=== PATIENT | male | born 1940 | race Caucasian/White ===

== ENCOUNTER → 2020-11-27 15:10 | Outpatient (BNVA) | payer OTHER, SELFPAY | PROVIDERS: Family Provider Family Medicine; PCP Family Medicine; Visit Provider Family Medicine | DX: E78.5 Hyperlipidemia, unspecified (principal); I25.10 Atherosclerotic heart disease of native coronary artery without angina pectoris; I10 Essential (primary) hypertension; E78.2 Mixed hyperlipidemia; I25.118 Atherosclerotic heart disease of native coronary artery with other forms of angina pectoris; I25.5 Ischemic cardiomyopathy; I50.32 Chronic diastolic (congestive) heart failure; R00.2 Palpitations | CPT/HCPCS: 80053; 80061 ==

== ENCOUNTER → 2022-01-01 14:34 | Outpatient (BNVA) | payer OTHER, SELFPAY | PROVIDERS: Family Provider Family Medicine; PCP Family Medicine; Visit Provider Family Medicine | DX: I10 Essential (primary) hypertension (principal); E78.2 Mixed hyperlipidemia; E78.5 Hyperlipidemia, unspecified; I25.10 Atherosclerotic heart disease of native coronary artery without angina pectoris; J30.9 Allergic rhinitis, unspecified; I25.118 Atherosclerotic heart disease of native coronary artery with other forms of angina pectoris; I25.5 Ischemic cardiomyopathy; I50.32 Chronic diastolic (congestive) heart failure; J30.1 Allergic rhinitis due to pollen | CPT/HCPCS: 80053; 80061 ==

== ENCOUNTER → 2022-07-10 10:55 | Outpatient (BNVA) | payer OTHER, SELFPAY | PROVIDERS: Family Provider Family Medicine; PCP Family Medicine; Visit Provider Family Medicine | DX: I10 Essential (primary) hypertension (principal); J30.9 Allergic rhinitis, unspecified; E78.5 Hyperlipidemia, unspecified; I25.118 Atherosclerotic heart disease of native coronary artery with other forms of angina pectoris; I25.10 Atherosclerotic heart disease of native coronary artery without angina pectoris; R53.83 Other fatigue; I50.32 Chronic diastolic (congestive) heart failure; R53.82 Chronic fatigue, unspecified; M54.2 Cervicalgia; I25.5 Ischemic cardiomyopathy; E78.2 Mixed hyperlipidemia | CPT/HCPCS: 72040; 80053; 83880; 84443; 85025 ==

== ENCOUNTER → 2023-01-07 08:43 | Outpatient (BNVA) | payer OTHER, SELFPAY | PROVIDERS: Family Provider Family Medicine; PCP Family Medicine; Visit Provider Family Medicine | DX: I50.32 Chronic diastolic (congestive) heart failure (principal); E78.2 Mixed hyperlipidemia; I10 Essential (primary) hypertension | CPT/HCPCS: 80053; 80061; 83880 ==

== ENCOUNTER 2023-05-29 13:15 | Emergency (ER) | payer MEDICARE, SELFPAY ==
[2023-05-29 14:12] VITALS: BMI 34.7
[2023-05-29 14:16] VITALS: BP 131/80; PULSE 74; RESP 18; TEMP 36.8; O2SAT 94
--- NOTE | 2023-05-29 15:32 | XRR_ITS ---
PROCEDURE INFORMATION: Exam: XR Chest Exam date and time: 05/29/2023 4:13 PM Age: 83 years old Clinical indication: Fever; Additional info: Fever chills cough TECHNIQUE: Imaging protocol: Radiologic exam of the chest. Views: 1 view. COMPARISON: CR XR cervical spine 3V* [id number] 07/10/2022 11:03 AM FINDINGS: Lungs: Unremarkable. No consolidation. Pleural spaces: Unremarkable. No pleural effusion. No pneumothorax. Heart/Mediastinum: Unremarkable. No cardiomegaly. Bones/joints: Unremarkable. XR/XR chest 1V portable [id number] IMPRESSION: No acute findings.
[2023-05-29 16:09] LABS: Basophils % 0.2 %; Eosinophils # 0.3 10^3/uL (0.0-0.8); Eosinophils % 5.2 %; Hematocrit 44.5 % (37-53); Lymphocytes % 16.4 %; Mean Corpuscular HGB Conc 33.9 g/dL (30-55); Mean Corpuscular Hemoglobin 32.8 pg (27-33); Mean Corpuscular Volume 96.5 fl (82-101); Monocytes # 0.8 10^3/uL (0.2-0.9); Monocytes % 13.9 %; Neutrophils # 3.79 10^3/uL (1.8-7.7); Neutrophils % 63.3 %; Nucleated Red Blood Cells % 0 %; Platelet Count 197 10^3/cmm (157-399); Red Blood Count 4.61 10^6/uL (3.85-5.65); Red Cell Distribution Width 12.5 % (12.1-15.1); White Blood Count 5.98 10^3/uL (3.29-11.43)
[2023-05-29 16:30] LABS: Alanine Aminotransferase 39 U/L (0-41); Albumin Level 3.5 g/dL (3.5-5.2); Alkaline Phosphatase 78 U/L (40-130); Anion Gap 8.8 (5-19); Aspartate Amino Transferase 31 U/L (0-40); Blood Urea Nitrogen 11 mg/dL (8-23); Calcium 8.7 mg/dL (8.5-10.5); Carbon Dioxide 29 mmol/L (22-29); Chloride 104 mmol/L (98-107); Globulin 3.4 g/dL (1.3-4.6); Glucose 105 mg/dL (65-115); Osmolality Calculated 286 mOsm/kg (285-295); Potassium 3.8 mmol/L (3.5-5.1); Sodium 138 mmol/L (136-145); Total Bilirubin 0.9 mg/dL (0.15-1.2); Total Protein 6.9 g/dL (6.6-8.7)
[2023-05-29 17:11] LABS: Add Urine Microscopic? NO; Charge for UA Resulting for Rev
[2023-05-29 17:13] LABS: Bilirubin Urine Neg (Negative); Blood Urine Neg (Negative); Glucose Urine UA Norm (Normal); Ketones Urine Negative (Negative); Leukocyte Esterase Urine Negative (Negative); Nitrate Urine Negative (Negative); Protein Urine Neg (Negative); Specific Gravity, Urine 1.005 (1.005-1.030); Urine Appearance Clear (CLEAR); Urine Color Yellow (Yellow); Urobilinogen Urine 4 mg/dL (Negative); pH Urine 6 (5-7)
[2023-05-29 17:27] LABS: SARS Covid-2 Antigen negative (Negative)
[2023-05-29 18:12] VITALS: BP 159/82; PULSE 76; RESP 16; O2SAT 96
--- NOTE | 2023-05-29 18:13 | ED_ITS ---
HPI - COVID General: Chief Complaint: COVID symptoms Stated Complaint: gen medical Time Seen by Provider: 05/29/23 17:50 History of Present Illness: Presents with cough fever chills congestion. Patient said this been going on for about 6 days. Patient's been on a Z-Michael for 3 days. Patient says his cough is getting worse and he is concerned for pneumonia.. Patient denies any fever or chills. Patient just got back from [place] where he is visiting family members. Patient's daughter and granddaughter was sick with the same similar symptoms but now they are better and he has not. COVID Results: SARS-CoV-2 Antigen (Rapid) negative (Negative) 05/29/23 16:55 Review of Systems General: Reports: 10 or more systems reviewed and unremarkable except in HPI and below PFSH ED PFSH: Medical History CAD (coronary artery disease) Diastolic CHF, chronic Hyperlipemia Hypertension Ischemic cardiomyopathy Surgical History H/O heart artery stent Social History Smoking and tobacco status: never smoked Physical Exam Const: COMMON NORMALS: no acute distress, average body habitus, patient oriented x3, no limitations, healthy appearing, alert and well nourished HENMT: COMMON NORMALS: normocephalic, atraumatic, hearing grossly normal bilaterally, external ears normal, Normal external nose present and moist oral mucous membranes HEAD & SCALP: normocephalic and atraumatic NOSE: Normal external nose present EXTERNAL EAR: Yes external ears normal Eye: COMMON NORMALS: Equal, round and reactive pupils present, EOMs intact bilaterally, conjunctivae normal and no scleral icterus CONJUNCTIVA: Yes conjunctivae normal PUPIL: Yes Equal, round and reactive pupils present Neck/C-Spine: COMMON NORMALS: full ROM, no lymphadenopathy, supple, no meningeal signs, no JVD and Thyroid normal THYROID: Thyroid normal Lymph: LYMPHATIC: no lymphadenopathy noted Chest: COMMONS NORMALS: normal inspection of the chest and normal palpation of entire chest wall Resp: COMMON NORMALS: normal respiratory effort, No retractions and No use of accessory muscles; negative for clear to auscultation bilaterally (Mild expiratory wheeze on end expiration) AUSCULTATION: not clear to auscultation bilaterally (Mild expiratory wheeze on end expiration) Cardio: COMMON NORMALS: no JVD, regular rate, regular rhythm, S1 normal heart sound present, S2 normal heart sound present, No gallops present (Cardio), No clicks present (Cardio), No murmurs present (Cardio) and No rub (Cardio) RATE: regular rate RHYTHM: regular rhythm HEART SOUNDS: S1 normal heart sound present and S2 normal heart sound present GI: COMMON NORMALS: Normal to inspection, nondistended, normoactive bowel sounds present, Soft to palpation, non-tender, No hepatosplenomegaly present and no masses PALPATION: Yes Soft to palpation and Yes No hepatosplenomegaly present : COMMON NORMALS: Yes no CVA tenderness BLADDER/KIDNEY EXAM: Yes no CVA tenderness Back/Pelvis: COMMON NORMALS: no CVA tenderness Neuro: COMMON NORMALS: patient oriented x3 SENSORIUM/ORIENTATION: Yes alert MENINGEAL SIGNS: Yes no meningeal signs Course Vital Signs: Vital signs: Vital Signs Temperature 98.2 F 05/29/23 14:16 Pulse Rate 76 05/29/23 18:12 Respiratory Rate 16 05/29/23 18:12 Blood Pressure 159/82 05/29/23 18:12 Pulse Oximetry 95 05/29/23 18:14 Oxygen Delivery Me thod Room Air 05/29/23 18:14 MDM - COVID Medical Decision Making Zentz to the ER with complains of cough fever chills congestion. Patient's been on a Z-Michael for 3 days. Patient's family members have already gotten better who has had the same similar symptoms. Patient's x-ray was negative. Patient's lab work was negative. EKG negative it is thought this probably an upper respiratory virus or some bronchitis. Patient's wheezing improved with a breathing treatment. Patient will be discharged home on prednisone and albuterol inhaler. Patient should follow-up with his PCP in approximately 7 days or sooner as needed. Differential Diagnosis Likely COVID 19 and pneumonia; Unlikely influenza, other viral infection, bacterial infection, copd exacerbation, pulmonary embolism, NSTEMI/STEMI, CHF exacerbation, stroke or overdose/intoxication Medical Records I reviewed the patient's medical records. Lab Data I reviewed the patient's lab results. 05/29/23 15:58 05/29/23 15:58 Radiology Impressions Chest X-Ray 05/29/23 15:32 IMPRESSION: No acute findings. Laboratory Results WBC 5.98 10^3/uL (3.29-11.43) 05/29/23 15:58 RBC 4.61 10^6/uL (3.85-5.65) 05/29/23 15:58 Hgb 15.10 g/dL (11.27-16.99) 05/29/23 15:58 Hct 44.5 % (37-53) 05/29/23 15:58 MCV 96.5 fl (82-101) 05/29/23 15:58 MCH 32.8 pg (27-33) 05/29/23 15:58 MCHC 33.9 g/dL (30-55) 05/29/23 15:58 RDW 12.5 % (12.1-15.1) 05/29/23 15:58 Plt Count 197 10^3/cmm (157-399) 05/29/23 15:58 MPV 10.0 fL (7.4-10.4) 05/29/23 15:58 Neut % (Auto) 63.3 % 05/29/23 15:58 Lymph % (Auto) 16.4 % 05/29/23 15:58 [place] % (Auto) 13.9 % 05/29/23 15:58 Eos % (Auto) 5.2 % 05/29/23 15:58 Baso % (Auto) 0.2 % 05/29/23 15:58 Neut # (Auto) 3.79 10^3/uL (1.8-7.7) 05/29/23 15:58 Lymph # (Auto) 1.0 10^3/uL (0.8-4.8) 05/29/23 15:58 [place] # (Auto) 0.8 10^3/uL (0.2-0.9) 05/29/23 15:58 Eos # (Auto) 0.3 10^3/uL (0.0-0.8) 05/29/23 15:58 Baso # (Auto) 0.0 10^3/uL (0.0-0.1) 05/29/23 15:58 Nucleated RBC % (auto) 0 % 05/29/23 15:58 Nucleated RBCs # 0.0 /100WBC 05/29/23 15:58 Sodium 138 mmol/L (136-145) 05/29/23 15:58 Potassium 3.8 mmol/L (3.5-5.1) 05/29/23 15:58 Chloride 104 mmol/L (98-107) 05/29/23 15:58 Carbon Dioxide 29 mmol/L (22-29) 05/29/23 15:58 Anion Gap 8.8 (5-19) 05/29/23 15:58 BUN 11 mg/dL (8-23) 05/29/23 15:58 Creatinine 0.8 mg/dL (0.7-1.2) 05/29/23 15:58 GFR Calculation Not Reportable 05/29/23 15:58 Glucose 105 mg/dL (65-115) 05/29/23 15:58 Calculated Osmolality 286 mOsm/kg (285-295) 05/29/23 15:58 Calcium 8.7 mg/dL (8.5-10.5) 05/29/23 15:58 Total Bilirubin 0.9 mg/dL (0.15-1.2) 05/29/23 15:58 AST 31 U/L (0-40) 05/29/23 15:58 ALT 39 U/L (0-41) 05/29/23 15:58 Alkaline Phosphatase 78 U/L (40-130) 05/29/23 15:58 Total Protein 6.9 g/dL (6.6-8.7) 05/29/23 15:58 Albumin 3.5 g/dL (3.5-5.2) 05/29/23 15:58 Globulin 3.4 g/dL (1.3-4.6) 05/29/23 15:58 Urine Color Yellow (Yellow) 05/29/23 16:55 Urine Appearance Clear (CLEAR) 05/29/23 16:55 Urine pH 6 (5-7) 05/29/23 16:55 Ur Specific Mccoll 1.005 (1.005-1.030) 05/29/23 16:55 Urine Protein Neg (Negative) 05/29/23 16:55 Urine Glucose (UA) Norm (Normal) 05/29/23 16:55 Urine Ketones Negative (Negative) 05/29/23 16:55 Urine Blood Neg (Negative) 05/29/23 16:55 Urine Nitrate Negative (Negative) 05/29/23 16:55 Urine Bilirubin Neg (Negative) 05/29/23 16:55 Urine Urobilinogen 4 mg/dL (Negative) H 05/29/23 16:55 Ur Leukocyte Esterase Negative (Negative) 05/29/23 16:55 SARS-CoV-2 Ag (Rapid) negative (Negative) 05/29/23 16:55 SARS-CoV-2 Antigen (Rapid) negative (Negative) 05/29/23 16:55 EKG Data EKG 1: I personally reviewed and interpreted this EKG as follows: EKG interpretation date: 05/29/23 EKG interpretation time: 18:22 Prior EKG tracings: not available for review Interpretation: EKG shows ventricular rate 73 bpm, IL interval 186, QRS duration 104, QTc 419, sinus rhythm, no ST-T wave changes Discharge Plan Discharge Patient Disposition: Home Clinical Impression: Bronchitis, Expiratory wheezing Condition: Stable Prescriptions: New prednisone 50 mg tablet 50 mg PO DAILY 5 Days Qty: 5 0RF albuterol sulfate [ProAir HFA] 90 mcg/actuation HFA aerosol inhaler 2 inh inhalation Q6H PRN (Reason: shortness of breath or wheezing) Qty: 8.5 0RF No Action furosemide [Lasix] 20 mg tablet 20 mg PO QAM PRN (Reason: leg swelling) Qty: 90 0RF Rx Instructions: as directed by aspirin [Adult Low Dose Aspirin] 81 mg tablet,delayed release (DR/EC) 81 mg PO DAILY metoprolol succinate 25 mg tablet extended release 24 hr 25 mg PO DAILY 90 Days Qty: 90 1RF loratadine 10 mg tablet 10 mg PO DAILY 90 Days Qty: 90 1RF lisinopril 30 mg tablet 30 mg PO DAILY 90 Days Qty: 90 1RF atorvastatin 40 mg tablet 40 mg PO DAILY 90 Days Qty: 90 3RF azithromycin 250 mg tablet See Rx Instructions PO .COMPLEX Qty: 6 0RF Rx Instructions: For 250 mg dose pack: take 500 mg today (day 1), then 250 mg for 4 days (days 2-5) PO fluticasone propionate 50 mcg/actuation spray,suspension 1 spray intranasal DAILY Qty: 15.8 1RF Rx Instructions: administer into each nostril Discharge Orders: Discharge ED (Routine); Ordered 05/29/23 Ordered By: Sukhjinder Castañeda Referrals: Cezar Serrato DO [Family Provider] - 1 week Ibeth Keenan MD [Primary Care Provider] - 1 week Patient Instructions: Acute Bronchitis (ED), Wheezing (ED) Activity Restrictions/Additional Instructions: Please finish your Z-Michael. Please take all your medicine including your steroids and inhaler As directed. Please follow-up with your family practice doctor in the next 7 days or sooner as needed. For further evaluation and treatment. Coding Level of Care Code ED Infection Control Nurse for Rena Cornell
[2023-05-29 18:14] VITALS: O2SAT 95
--- NOTE | 2023-05-29 18:22 | ECG_ITS ---
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 Measurements Intervals [place] Rate: 73 P: 58 WV: 186 QRS: 24 QRSD: 104 T: 40 QT: 392 QTc: 435 Interpretive Statements SINUS RHYTHM No previous ECG available for comparison Electronically Signed On 05-29-2023 20:30:11 CDT by Cristina Waterman M.D. [email or web address]
[2023-05-29 19:07] VITALS: BP 141/76; PULSE 72; O2SAT 95
[2023-05-29 19:18] VITALS: BP 165/78; PULSE 73; O2SAT 94
== END 2023-05-29 19:20 | disposition home or self-care (01) ==
PROVIDERS: Emergency Provider Emergency Medicine; Family Provider Family Medicine; PCP Family Medicine
DX: J40 Bronchitis, not specified as acute or chronic (principal); Z79.82 Long term (current) use of aspirin; Z20.822 Contact with and (suspected) exposure to COVID-19; I25.10 Atherosclerotic heart disease of native coronary artery without angina pectoris; I11.0 Hypertensive heart disease with heart failure; I50.32 Chronic diastolic (congestive) heart failure; E78.5 Hyperlipidemia, unspecified
CPT/HCPCS: 36415; 71045; 80053; 81003; 85025; 87426; 93005; 99285

== ENCOUNTER → 2023-06-02 08:33 | Outpatient (BNVA) | payer MEDICARE, SELFPAY | PROVIDERS: Family Provider Family Medicine; PCP Family Medicine; Visit Provider Family Medicine | DX: M17.11 Unilateral primary osteoarthritis, right knee; M25.551 Pain in right hip; M25.552 Pain in left hip | CPT/HCPCS: 73523; 73562 ==

== ENCOUNTER → 2023-08-03 14:44 | Outpatient (BNVA) | payer MEDICARE, SELFPAY | PROVIDERS: Family Provider Family Medicine; PCP Family Medicine; Referring Provider Family Medicine; Visit Provider Internal Medicine | DX: R07.9 Chest pain, unspecified (principal); I11.0 Hypertensive heart disease with heart failure; I50.32 Chronic diastolic (congestive) heart failure; E78.2 Mixed hyperlipidemia; I25.5 Ischemic cardiomyopathy; I25.118 Atherosclerotic heart disease of native coronary artery with other forms of angina pectoris | CPT/HCPCS: 93005; 99204 ==

== ENCOUNTER 2023-09-09 11:48 | Outpatient (CLI) | payer MEDICARE, SELFPAY ==
--- NOTE | 2023-09-09 12:15 | USCV_ITS ---
Micah Wu Age: 83 Gender: M : 1940 Exam Date: 09/09/2023 11:57 Ordering Phys: Roberto Marquez M.D ([email or web address]) Technologist: CELESTE Exam Location: [facility] [place] Indication: PRIOR HISTORY OF CARDIAC STENTS. BP: 120 / 80 HR: 72 Rhythm: Sinus Technical Quality: Adequate MEASUREMENTS (Male / Female) Normal Values 2D ECHO LV Diastolic Diameter PLAX 4.5 cm 4.2 - 5.9 / 3.9 - 5.3 cm LV Systolic Diameter PLAX 3.7 cm LV Chamber Size 3.7 cm IVS Diastolic Thickness 1.4 cm 0.6 - 1.0 / 0.6 - 0.9 cm IVS Systolic Thickness 1.6 cm LVPW Diastolic Thickness 1.4 cm 0.6 - 1.0 / 0.6 - 0.9 cm LVPW Systolic Thickness 1.9 cm RV Chamber Size 2.9 cm LVOT Diameter 2.0 cm LV Ejection Fraction 2D Teich 39.3 % LV Ejection Fraction MOD 2C 59.8 % LV Ejection Fraction 2C AL 59.7 % LA Diameter 4.4 cm LA Width 2.8 cm LA Height 3.6 cm RA Width 4.0 cm RA Height 3.8 cm Aorta at Sinotubular Diameter 3.8 cm IVC Diameter 1.3 cm M-MODE Aortic Annulus Diameter 3.8 cm LA Ao Ratio MM 1.4 MV E Point Septal Separation 1.5 cm DOPPLER AV Peak Velocity 111.0 cm/s LVOT Peak Velocity 92.0 cm/s AV Area Cont Eq vti 2.5 cm squared AV Area Cont Eq pk 2.7 cm squared MV Area PHT 2.6 cm squared Mitral E to A Ratio 0.7 MV E' Velocity 31.0 cm/s Mitral E to MV E' Ratio 8.2 Mitral E to LV E' Lateral Ratio 8.2 Mitral E to LV E' Septal Ratio 8.3 TR Peak Velocity 193.8 cm/s TR Peak Gradient 15.0 mmHg TR Mean Velocity 139.5 cm/s TR Mean Gradient 8.8 mmHg TR Velocity Time Integral 46.7 cm TV Peak E Velocity 64.0 cm/s Right Atrial Pressure 3.0 mmHg Pulmonary Artery Systolic Pressu 18.0 mmHg RV Acceleration Time 0.1 s RV Ejection Time 0.3 s RV AcT/ET 0.3 FINDINGS Left Ventricle Left ventricle is normal in size. LV systolic function is normal with EF of 55 to 60%. No regional wall motion abnormalities are seen. Grade 1 diastolic dysfunction. Right Ventricle Normal in size and function Right Atrium Normal in size Left Atrium Normal in size Mitral Valve Structurally normal mitral valve. Aortic Valve Structurally normal aortic valve. No significant stenosis or regurgitation. Tricuspid Valve Mild tricuspid regurgitation. Pulmonary artery systolic pressure is normal. Pulmonic Valve Not well-visualized Pericardium Normal Aorta Ascending aorta is mildly dilated with diameter of 3.77 cm. IVC Appears to be normal CONCLUSIONS LV systolic function is normal with EF 55 to 60%. Grade 1 diastolic dysfunction. 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
== END 2023-09-09 11:49 | disposition home or self-care (01) ==
LOC: RAD 11:49
PROVIDERS: Family Provider Family Medicine; PCP Family Medicine; Visit Provider Internal Medicine
DX: R07.9 Chest pain, unspecified (principal); R06.02 Shortness of breath; Z95.5 Presence of coronary angioplasty implant and graft; I07.1 Rheumatic tricuspid insufficiency; I77.810 Thoracic aortic ectasia
CPT/HCPCS: 93306

== ENCOUNTER 2023-09-29 14:40 | Emergency (ER) | payer MEDICARE, SELFPAY ==
[2023-09-29 15:11] VITALS: BP 160/83; PULSE 81; RESP 18; TEMP 36.6; O2SAT 94; BMI 34.8
--- NOTE | 2023-09-29 16:19 | XRR_ITS ---
PROCEDURE INFORMATION: Exam: XR Chest Exam date and time: 09/29/2023 4:35 PM Age: 83 years old Clinical indication: Cough TECHNIQUE: Imaging protocol: Radiologic exam of the chest. Views: 1 view. COMPARISON: CR XR chest 1V portable [id number] 05/29/2023 4:13 PM FINDINGS: Lungs: Unremarkable. No consolidation. Pleural spaces: Unremarkable. No pleural effusion. No pneumothorax. Heart/Mediastinum: Unremarkable. No cardiomegaly. Diaphragm: There is elevation of the right hemidiaphragm. Bones/joints: Unremarkable. XR/XR chest 1V portable [id number] IMPRESSION: No acute findings.
[2023-09-29 16:42] VITALS: BP 137/83; PULSE 82; RESP 18; O2SAT 92
[2023-09-29 17:19] LABS: Basophils % 0.4 %; Eosinophils # 0.1 10^3/uL (0.0-0.8); Eosinophils % 1.9 %; Hematocrit 47.9 % (37-53); Lymphocytes # 0.9 10^3/uL (0.8-4.8); Lymphocytes % 12.6 %; Mean Corpuscular HGB Conc 33.2 g/dL (30-55); Mean Corpuscular Volume 96.4 fl (82-101); Mean Platelet Volume 10.6 fL (7.4-10.4); Monocytes # 0.7 10^3/uL (0.2-0.9); Monocytes % 9.6 %; Neutrophils # 5.44 10^3/uL (1.8-7.7); Neutrophils % 74.7 %; Nucleated Red Blood Cells % 0 %; Platelet Count 191 10^3/cmm (157-399); Red Blood Count 4.97 10^6/uL (3.85-5.65); Red Cell Distribution Width 12.3 % (12.1-15.1); White Blood Count 7.29 10^3/uL (3.29-11.43)
[2023-09-29 17:37] LABS: Alanine Aminotransferase 24 U/L (0-41); Albumin Level 3.7 g/dL (3.5-5.2); Alkaline Phosphatase 99 U/L (40-130); Anion Gap 14.3 (5-19); Aspartate Amino Transferase 25 U/L (0-40); Blood Urea Nitrogen 12 mg/dL (8-23); Calcium 9.3 mg/dL (8.5-10.5); Carbon Dioxide 27 mmol/L (22-29); Chloride 102 mmol/L (98-107); Globulin 3.7 g/dL (1.3-4.6); Glucose 151 mg/dL (65-115); Lipase 14 U/L (13-60); Osmolality Calculated 291 mOsm/kg (285-295); Potassium 4.3 mmol/L (3.5-5.1); Sodium 139 mmol/L (136-145); Total Bilirubin 0.9 mg/dL (0.15-1.2); Total Protein 7.4 g/dL (6.6-8.7)
[2023-09-29 19:15] VITALS: PULSE 85; O2SAT 93
[2023-09-29] MEDS: HYDROcodone-acetaminophen 5-325 mg Tablet 1 TAB PO (19:21)
--- NOTE | 2023-09-29 19:35 | ED_ITS ---
HPI - Abdominal Pain 2 General: Chief Complaint: Abdominal Pain Stated Complaint: cough,left side abd pain Time Seen by Provider: 09/29/23 18:49 Source: patient Mode of arrival: ambulatory Limitations: no limitations History of Present Illness: 83-year-old male states he had a chronic cough for the last 2 weeks. Denies any fever denies any shortness of breath his cough has been nonproductive states he has been coughing so hard he started having some left side pain. States much worse with touch and when he coughs. Denies any dysuria denies any vomiting or diarrhea. Associated Symptoms: Denies chills, diarrhea, dysuria, fever(s), nausea and vomiting Review of Systems 2 Const: Denies: fever(s), chills, body aches or change in appetite ENMT: Denies: throat pain or dental pain Card: Denies: chest pain Resp: Reports: non-productive cough; Denies: dyspnea GI: Reports: abdominal pain; Denies: nausea, vomiting or diarrhea : Denies: dysuria Musc: Denies: neck pain or back pain Skin/Breast: Denies: rash Neuro: Denies: headache(s) PFSH ED 2 PFSH: Medical History Diastolic CHF, chronic Hyperlipemia Hypertension Ischemic cardiomyopathy CAD (coronary artery disease) Surgical History H/O heart artery stent Social History Smoking and tobacco/nicotine status: never used tobacco/nicotine Physical Exam 2 Const: COMMON NORMALS: no acute distress, patient oriented x3 and healthy appearing HENMT: COMMON NORMALS: normocephalic and atraumatic HEAD & SCALP: n ormocephalic and atraumatic Neck/C-Spine: COMMON NORMALS: full ROM and supple Chest: COMMONS NORMALS: normal inspection of the chest and normal palpation of entire chest wall Resp: COMMON NORMALS: normal respiratory effort, No retractions, No use of accessory muscles and clear to auscultation bilaterally AUSCULTATION: clear to auscultation bilaterally Cardio: COMMON NORMALS: regular rate, regular rhythm and No murmurs present (Cardio) RATE: regular rate RHYTHM: regular rhythm GI: COMMON NORMALS: Normal to inspection, nondistended, normoactive bowel sounds present, Soft to palpation and no masses PALPATION: Yes Soft to palpation OTHER: Tenderness over left lateral abdomen side Extremity: COMMON NORMALS: normal to inspection and full ROM Neuro: COMMON NORMALS: patient oriented x3, moves all extremities and no focal motor deficits Psych: COMMON NORMALS: mental status grossly normal, Normal thought process present and cooperative THOUGHT PROCESS: Normal thought process present Skin: COMMON NORMALS: no rashes or lesions noted and no wounds GENERAL SKIN EXAM: no rashes or lesions noted Course 2 Vital Signs: Vital signs: Vital Signs Temperature 98 F 09/29/23 15:11 Pulse Rate 82 09/29/23 16:42 Respiratory Rate 18 09/29/23 16:42 Blood Pressure 137/83 09/29/23 16:42 Pulse Oximetry 92 09/29/23 16:42 Oxygen Delivery Me thod Room Air 09/29/23 15:11 MDM - Abdominal Pain Medical Decision Making Patient presents here with left side pain I believe is likely a muscle strain from him coughing. He has no signs of acute abdomen blood work here is normal x-ray shows no pneumonia has had a cough for 2 weeks I did inform him he needs to follow-up with his PCP in 1 week he is on lisinopril informing lisinopril can cause a cough and his cough continues inform he needs to talk to his PCP about possibly taking him off the lisinopril we will prescribe pain meds for his side pain return if worsening. Lab Data 09/29/23 17:02 09/29/23 17:02 Labs/Radiology: Radiology Impressions Chest X-Ray 09/29/23 16:19 IMPRESSION: No acute findings. Laboratory Results WBC 7.29 10^3/uL (3.29-11.43) 09/29/23 17:02 RBC 4.97 10^6/uL (3.85-5.65) 09/29/23 17:02 Hgb 15.90 g/dL (11.27-16.99) 09/29/23 17:02 Hct 47.9 % (37-53) 09/29/23 17:02 MCV 96.4 fl (82-101) 09/29/23 17:02 MCH 32.0 pg (27-33) 09/29/23 17:02 MCHC 33.2 g/dL (30-55) 09/29/23 17:02 RDW 12.3 % (12.1-15.1) 09/29/23 17:02 Plt Count 191 10^3/cmm (157-399) 09/29/23 17:02 MPV 10.6 fL (7.4-10.4) H 09/29/23 17:02 Neut % (Auto) 74.7 % 09/29/23 17:02 Lymph % (Auto) 12.6 % 09/29/23 17:02 [place] % (Auto) 9.6 % 09/29/23 17:02 Eos % (Auto) 1.9 % 09/29/23 17:02 Baso % (Auto) 0.4 % 09/29/23 17:02 Neut # (Auto) 5.44 10^3/uL (1.8-7.7) 09/29/23 17:02 Lymph # (Auto) 0.9 10^3/uL (0.8-4.8) 09/29/23 17:02 [place] # (Auto) 0.7 10^3/uL (0.2-0.9) 09/29/23 17:02 Eos # (Auto) 0.1 10^3/uL (0.0-0.8) 09/29/23 17:02 Baso # (Auto) 0.0 10^3/uL (0.0-0.1) 09/29/23 17:02 Nucleated RBC % (auto) 0 % 09/29/23 17:02 Nucleated RBCs # 0.0 /100WBC 09/29/23 17:02 Sodium 139 mmol/L (136-145) 09/29/23 17:02 Potassium 4.3 mmol/L (3.5-5.1) 09/29/23 17:02 Chloride 102 mmol/L (98-107) 09/29/23 17:02 Carbon Dioxide 27 mmol/L (22-29) 09/29/23 17:02 Anion Gap 14.3 (5-19) 09/29/23 17:02 BUN 12 mg/dL (8-23) 09/29/23 17:02 Creatinine 0.8 mg/dL (0.7-1.2) 09/29/23 17:02 GFR Calculation Not Reportable 09/29/23 17:02 Glucose 151 mg/dL (65-115) H 09/29/23 17:02 Calculated Osmolality 291 mOsm/kg (285-295) 09/29/23 17:02 Calcium 9.3 mg/dL (8.5-10.5) 09/29/23 17:02 Total Bilirubin 0.9 mg/dL (0.15-1.2) 09/29/23 17:02 AST 25 U/L (0-40) 09/29/23 17:02 ALT 24 U/L (0-41) 09/29/23 17:02 Alkaline Phosphatase 99 U/L (40-130) 09/29/23 17:02 Total Protein 7.4 g/dL (6.6-8.7) 09/29/23 17:02 Albumin 3.7 g/dL (3.5-5.2) 09/29/23 17:02 Globulin 3.7 g/dL (1.3-4.6) 09/29/23 17:02 Lipase 14 U/L (13-60) 09/29/23 17:02 All radiology interpretation(s) finalized by discharge Discharge Plan Discharge Patient Disposition: Home Clinical Impression: Cough Abdominal pain Qualifiers: Abdominal location: left lower quadrant Qualified Code(s): R10.32 - Left lower quadrant pain Condition: Stable Prescriptions: New hydrocodone-acetaminophen 5-325 mg tablet 1 tab PO Q6H PRN (Reason: pain) Qty: 14 0RF No Action aspirin [Adult Low Dose Aspirin] 81 mg tablet,delayed release (DR/EC) 81 mg PO DAILY atorvastatin 40 mg tablet 40 mg PO DAILY 90 Days Qty: 90 3RF metoprolol succinate 25 mg tablet extended release 24 hr 25 mg PO DAILY 90 Days Qty: 90 1RF lisinopril 30 mg tablet 30 mg PO DAILY 90 Days Qty: 90 1RF furosemide [Lasix] 20 mg tablet 20 mg PO QAM PRN (Reason: leg swelling) Qty: 90 1RF Rx Instructions: as directed by nitroglycerin 0.4 mg tablet, sublingual 0.4 mg sublingual Q5M PRN (Reason: chest pain) Qty: 25 3RF Rx Instructions: do not exceed 3 doses per episode azithromycin 250 mg tablet See Rx Instructions PO .COMPLEX Qty: 6 0RF Rx Instructions: For 250 mg dose pack: take 500 mg today (day 1), then 250 mg for 4 days (days 2-5) PO promethazine-DM 6.25-15 mg/5 mL syrup 5 ml PO Q6H PRN (Reason: cough) Qty: 200 0RF albuterol sulfate 90 mcg/actuation HFA aerosol inhaler 2 puff inhalation Q6H PRN (Reason: shortness of breath or wheezing) Qty: 8.5 0RF Discharge Orders: Discharge ED (Routine); Ordered 09/29/23 Ordered By: Aisha Toro Referrals: Ibeth Keenan MD [Primary Care Provider] - 1-3 days Discharge Diet: Advance as tolerated Discharge Activity: Resume usual activity Patient Instructions: Abdominal Pain (ED), Acute Cough (ED) Coding Level of Care Code ED Power System Electrical Engineer for Rena Cornell
== END 2023-09-29 19:58 | disposition home or self-care (01) ==
PROVIDERS: Physician Assistant; Emergency Provider Emergency Medicine; PCP Family Medicine
DX: R05.9 Cough, unspecified (principal); R10.32 Left lower quadrant pain; Z79.82 Long term (current) use of aspirin; I11.0 Hypertensive heart disease with heart failure; I50.9 Heart failure, unspecified; I25.5 Ischemic cardiomyopathy; E78.5 Hyperlipidemia, unspecified; I25.10 Atherosclerotic heart disease of native coronary artery without angina pectoris
CPT/HCPCS: 36415; 71045; 80053; 83690; 85025; 99284

== ENCOUNTER → 2023-10-22 08:57 | Outpatient (BNVA) | payer MEDICARE, SELFPAY | PROVIDERS: PCP Family Medicine; Visit Provider Family Medicine | DX: I50.32 Chronic diastolic (congestive) heart failure (principal) | CPT/HCPCS: 80048 ==

== ENCOUNTER → 2024-01-13 10:19 | Outpatient (BNVA) | payer MEDICARE, SELFPAY | PROVIDERS: PCP Family Medicine; Visit Provider Family Medicine | DX: I50.32 Chronic diastolic (congestive) heart failure (principal); I49.9 Cardiac arrhythmia, unspecified; I11.0 Hypertensive heart disease with heart failure; I10 Essential (primary) hypertension; E78.2 Mixed hyperlipidemia; R73.9 Hyperglycemia, unspecified; Z13.1 Encounter for screening for diabetes mellitus | CPT/HCPCS: 80048; 80061; 83036; 93005 ==

== ENCOUNTER → 2024-05-17 10:40 | Outpatient (BNVA) | payer MEDICARE, SELFPAY | PROVIDERS: PCP Family Medicine; Visit Provider Family Medicine | DX: E11.9 Type 2 diabetes mellitus without complications (principal) | CPT/HCPCS: 80048; 83036 ==

== ENCOUNTER → 2024-11-18 09:15 | Outpatient (BNVA) | payer MEDICARE, SELFPAY | PROVIDERS: PCP Family Medicine; Visit Provider Family Medicine | DX: I10 Essential (primary) hypertension (principal); I50.32 Chronic diastolic (congestive) heart failure; E78.2 Mixed hyperlipidemia; E11.9 Type 2 diabetes mellitus without complications | CPT/HCPCS: 80053; 80061; 83036; 83880; 85025 ==

== ENCOUNTER → 2025-01-30 09:06 | Outpatient (BNVA) | payer MEDICARE, SELFPAY | PROVIDERS: PCP Family Medicine; Visit Provider Family Medicine | DX: E11.9 Type 2 diabetes mellitus without complications (principal) | CPT/HCPCS: 83036 ==

== ENCOUNTER → 2025-05-15 10:08 | Outpatient (BNVA) | payer MEDICARE, SELFPAY | PROVIDERS: PCP Family Medicine; Visit Provider Family Medicine | DX: E11.9 Type 2 diabetes mellitus without complications (principal) | CPT/HCPCS: 80048; 83036 ==

== ENCOUNTER → 2025-08-10 10:10 | Outpatient (BNVA) | payer MEDICARE, SELFPAY | PROVIDERS: PCP Family Medicine; Visit Provider Family Medicine | DX: E11.9 Type 2 diabetes mellitus without complications (principal); I50.32 Chronic diastolic (congestive) heart failure | CPT/HCPCS: 80048; 83036 ==